=== PATIENT | female | born 2000 | race Two or more races ===

== ENCOUNTER → 2022-01-24 | Emergency (ER) | payer OTHER ==
[~2022-01-24] VITALS: Ht 154.9 cm; Wt 45.8 kg
[2022-01-24 13:43] VITALS: BP 104/69
== END | disposition home or self-care (01) ==
LOC: ER 13:43 → EDBD 13:43
DX: S20.212A Contusion of left front wall of thorax, initial encounter (principal); S50.819A Abrasion of unspecified forearm, initial encounter; V43.52XA Car driver injured in collision with other type car in traffic accident, initial encounter; Y93.89 Activity, other specified; Y92.410 Unspecified street and highway as the place of occurrence of the external cause; Y99.8 Other external cause status
CPT/HCPCS: 71101